=== PATIENT | male | born 1990 | race Caucasian/White ===

== ENCOUNTER 2018-07-15 17:30 | Outpatient (RCR) | payer OTHER, SELFPAY ==
--- NOTE | 2018-06-17 19:37 | HP.PTEVAL_ITS ---
Patient's Visit Information CRISTINA CATHERINE is a 28 year old M referred to Physical Therapy by Nicolette Cheema NP-C with a diagnosis of LOW BACK PAIN WITH NEUROPATHY BLE. Date of Evaluation: 06/17/18 Physical Therapist: John Thomason PT, - Visit Plan Frequency: 2x /Week Duration: 4 Weeks Plan: POSTURAL EX'S,DLS ABD/BACK,LE FLEXABLITY,MODALITIES PRN FOR PAIN CONTROL - Subjective Subjective: This 28 y/o male presents to physical therapy for low back pain with neuropathy in BLE. 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 Symptoms return several months later in back and legs . Patient reports pain cane be manageable 3/10 but when have flare ups pain can increase to 7/10. Symptom aggravates with walking,standing,bending,lifting,sitting. Symptoms better with rest and MEDS.Currentlybpain is located ache in back and left leg with intensity of symptoms increase with activity.Patient has had h/o epidural injections which helped. Coughing/sneezing -.Bowel/bladder -. Patient symptoms affect QOL and job demands. SOCAIL: . 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 PALPATION: tender paraspinals. NEURO: c/o parathesia/tingling lateral hip,reflexes L3-4,L4-5,L5-S1 2/3. SYMMTRIES : align. GAIT: reciprocal pattern normal cece. MMT: quads/hams/hip 4/5,ankle 5/5. LUMBAR ROM: flexion mod loss pain ,side glides min loss,extension min loss. FLEXABLITY: hams min loss - Special Tests L/S Slump test left side: Negative L/S Slump test right side: Negative L/S Left Straight Leg Raise: Negative L/S Right Straight Leg Raise: Negative Lumbar Standing: Flexion - Mechanical Response: No effect Lumbar Standing: Flexion - Symptoms During Testing: Increases Lumbar Standing: Flexion - Symptoms After Testing: Worse Lumbar Standing: Extension - Mechanical Response: No effect Lumbar Standing: Extension - Symptoms During Testing: Increases Lumbar Standing: Extension - Symptoms After Testing: Worse Lumbar Lying: Flexion - Mechanical Response: No effect Lumbar Lying: Flexion - Symptoms During Testing: Increases Lumbar Lying: Flexion - Symptoms After Testing: Worse Lumbar Lying: Extension - Mechanical Response: No effect Lumbar Lying: Extension - Symptoms During Testing: Increases Lumbar Lying: Extension - Symptoms After Testing: Worse - Goals Goal 1:: Independant with HEP Goal Time Frame: 4-6 Weeks Goal 2:: Independant with posture/body mechanics Goal Time Frame: 4-6 Weeks Goal 3:: Decrease lumbar pain by 50 % or greater to improve function with ADL'S and job demands. Goal Time Frame: 4-6 Weeks Goal 4:: Patient to improve lumbar ROM for function of recovery Goal Time Frame: 4-6 Weeks Goal 5:: Patient to improbe back owestry score by 5 points or greater to improve QOL. Goal Time Frame: 4-6 Weeks Goal 6:: Patient to improve ablity to perform ADLS's job demands with min limiations with less pain Goal Time Frame: 4-6 Weeks - Rehabilitation Potential Physical Therapy Diagnosis: This patient has multiple comorbities with lumbar with tumor removed,pars fracture,and lumbar fusion 2016 with current dysfunction with pain ,weak Transverse abdominal,multifidas,. decrease ROM thus impairs function and job demands. Rehabilitation Potential: Good - Anticipated Interventions Patient/Client Instruction: Educate patient on: Condition, Plan of Care For the Purpose of:: To decrease pain, To increase ROM, To improve muscle performance and motor function, To improve ability to perform ADL's, To increase tolerance to activity/condition/position, To improve ability of physical actions for home/community/work/leisure, To improve health of tissue, To decrease soft tissue restriction, To increase flexibility/ROM, To reduce risk of recurrence, To prevent re-injury, To improve ability to perform tasks related to life management Therapeutic Exercise to Include: Strength training, Body mechanics, Postural training, Flexibilty training, Dynamic Lumbar Stabilization For the Purpose of:: To decrease pain, To increase ROM, To improve muscle performance and motor function, To improve ability to perform ADL's, To increase tolerance to activity/condition/position, To improve ability of physical actions for home/community/work/leisure, To improve health of tissue, To decrease soft tissue restriction, To increase flexibility/ROM, To improve ability to perform tasks related to life management TENS: Yes IF ES: Yes Cryotherapy (ice pack, ice massage): Yes Thermo therapy (hot pack): Yes Ultrasound (thermal/non thermal): Yes For the Purpose of:: To decrease pain, To increase ROM, To improve health of tissue, To decrease soft tissue restriction, To improve ability to perform tasks related to life management Thank you for the opportunity to evaluate your patient. For Medicare and Medicare HMO plans, please review the plan of care and approve it. It will need to be FAXED BACK to us at [phone] for Medicare purposes. Please let me know if there are questions or concerns regarding this plan of care. Physician Signature: Date:
--- NOTE | 2018-06-18 14:35 | HP.PTEVAL_ITS ---
Patient's Visit Information CRISTINA CATHERINE is a 28 year old M referred to Physical Therapy by Nicolette Cheema NP-C with a diagnosis of LOW BACK PAIN WITH NEUROPATHY BLE. Date of Evaluation: 06/17/18 Physical Therapist: John Thomason PT, - Visit Plan Frequency: 2x /Week Duration: 4 Weeks Plan: POSTURAL EX'S,DLS ABD/BACK,LE FLEXABLITY,MODALITIES PRN FOR PAIN CONTROL - Subjective Subjective: This 28 y/o male presents to physical therapy for low back pain with neuropathy in BLE. This patient has h/o intially injuring low back pole vaulting in HS has caused pars fx L4-5 2005,then tumor removed T12 2013 due to progress madelin worse in legs with pain and parathesia. 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 Symptoms return several months later in back and legs . Patient reports pain cane be manageable 3/10 but when have flare ups pain can increase to 7/10. Symptom aggravates with walking,standing,bending,lifting,sitting. Symptoms better with rest and MEDS.Currentlybpain is located ache in back and left leg with intensity of symptoms increase with activity.Patient has had h/o epidural injections which helped. Coughing/sneezing -.Bowel/bladder -. Patient symptoms affect QOL and job demands. SOCAIL: . [employer]OVATION: [employer] .[employer]. active duty in [employer] - Pain Bilateral Back Pain Intensity (Out of 10): 3 Pain Intensity Range: 7 Left Lower Extremity Pain Intensity (Out of 10): 3 Pain Intensity Range: 7 - Objective POSTURE: rouded shoulders head foward. PALPATION: tender paraspinals. NEURO: c/o parathesia/tingling lateral hip,reflexes L3-4,L4-5,L5-S1 2/3. SYMMTRIES : align. GAIT: reciprocal pattern normal cece. MMT: quads/hams/hip 4/5,ankle 5/5. LUMBAR ROM: flexion mod loss pain ,side glides min loss,extension min loss. FLEXABLITY: hams min loss - Special Tests L/S Slump test left side: Negative L/S Slump test right side: Negative L/S Left Straight Leg Raise: Negative L/S Right Straight Leg Raise: Negative Lumbar Standing: Flexion - Mechanical Response: No effect Lumbar Standing: Flexion - Symptoms During Testing: Increases Lumbar Standing: Flexion - Symptoms After Testing: Worse Lumbar Standing: Extension - Mechanical Response: No effect Lumbar Standing: Extension - Symptoms During Testing: Increases Lumbar Standing: Extension - Symptoms After Testing: Worse Lumbar Lying: Flexion - Mechanical Response: No effect Lumbar Lying: Flexion - Symptoms During Testing: Increases Lumbar Lying: Flexion - Symptoms After Testing: Worse Lumbar Lying: Extension - Mechanical Response: No effect Lumbar Lying: Extension - Symptoms During Testing: Increases Lumbar Lying: Extension - Symptoms After Testing: Worse - Goals Goal 1:: Independant with HEP Goal Time Frame: 4-6 Weeks Goal 2:: Independant with posture/body mechanics Goal Time Frame: 4-6 Weeks Goal 3:: Decrease lumbar pain by 50 % or greater to improve function with ADL'S and job demands. Goal Time Frame: 4-6 Weeks Goal 4:: Patient to improve lumbar ROM for function of recovery Goal Time Frame: 4-6 Weeks Goal 5:: Patient to improbe back owestry score by 5 points or greater to improve QOL. Goal Time Frame: 4-6 Weeks Goal 6:: Patient to improve ablity to perform ADLS's job demands with min limiations with less pain Goal Time Frame: 4-6 Weeks - Rehabilitation Potential Physical Therapy Diagnosis: This patient has multiple comorbities with lumbar with tumor removed,pars fracture,and lumbar fusion 2016 with current dysfunction with pain ,weak Transverse abdominal,multifidas,. decrease ROM thus impairs function and job demands. Rehabilitation Potential: Good - Anticipated Interventions Patient/Client Instruction: Educate patient on: Condition, Plan of Care For the Purpose of:: To decrease pain, To increase ROM, To improve muscle performance and motor function, To improve ability to perform ADL's, To increase tolerance to activity/condition/position, To improve ability of physical actions for home/community/work/leisure, To improve health of tissue, To decrease soft tissue restriction, To increase flexibility/ROM, To reduce risk of recurrence, To prevent re-injury, To improve ability to perform tasks related to life management Therapeutic Exercise to Include: Strength training, Body mechanics, Postural training, Flexibilty training, Dynamic Lumbar Stabilization For the Purpose of:: To decrease pain, To increase ROM, To improve muscle performance and motor function, To improve ability to perform ADL's, To increase tolerance to activity/condition/position, To improve ability of physical actions for home/community/work/leisure, To improve health of tissue, To decrease soft tissue restriction, To increase flexibility/ROM, To improve ability to perform tasks related to life management TENS: Yes IF ES: Yes Cryotherapy (ice pack, ice massage): Yes Thermo therapy (hot pack): Yes Ultrasound (thermal/non thermal): Yes For the Purpose of:: To decrease pain, To increase ROM, To improve health of tissue, To decrease soft tissue restriction, To improve ability to perform tasks related to life management Thank you for the opportunity to evaluate your patient. For Medicare and Medicare HMO plans, please review the plan of care and approve it. It will need to be FAXED BACK to us at [phone] for Medicare purposes. Please let me know if there are questions or concerns regarding this plan of care. Physician Signature: Date:
--- NOTE | 2018-07-15 18:58 | HP.PTDCSUM ---
HP - PT D/C Summary It has been my pleasure to treat CRISTINA CATHERINE under orders from Nicolette Cheema NP-C, for the diagnosis of LOW BACK PAIN WITH NEUROPATHY BLE for a total of 9 visit(s). Discharge Date: 07/15/18 Please see the following information for a summary of their discharge status. - Subjective Subjective: Feeling okay - Pain Bilateral Back Pain Intensity (Out of 10): 0 Left Lower Extremity Pain Intensity (Out of 10): 0 - Overall Improvement % Improvement: 75 - Objective Objective/Function: POSTURE: mild foward posture. GAIT: normal reciprocal pattern. NEURO: intact reflexes. MMT: 4/5. LUMBAR ROM: flexion min loss,extension min loss. -SLR - Goals Goal 1:: Independant with HEP Goal Progress: Goal Met Goal 2:: Independant with posture/body mechanics Goal Progress: Goal Met Goal 3:: Decrease lumbar pain by 50 % or greater to improve function with ADL'S and job demands. Goal Progress: Goal Met Goal 4:: Patient to improve lumbar ROM for function of recovery Goal Progress: Goal Met Goal 5:: Patient to improbe back owestry score by 5 points or greater to improve QOL. Goal 6:: Patient to improve ablity to perform ADLS's job demands with min limiations with less pain - Plan Plan: D/C TO HEP - D/C Information Discharge Comments: [facility] If there are questions or concerns regarding this patient's physical therapy, please feel free to call me at [phone]. Thank you for the referral of this patient. Sincerely, John Thomason, PT,
== END 2018-07-15 19:00 | disposition home or self-care (01) ==
LOC: PT 17:30
PROVIDERS: Family Provider Nurse Practitioner; PCP Nurse Practitioner; Referring Provider Nurse Practitioner; Visit Provider Nurse Practitioner
DX: M54.5 Low back pain (principal)
CPT/HCPCS: 97110; 97161; 97530; G8978; G8979

== ENCOUNTER → 2019-04-24 14:48 | Outpatient (CLI) | payer MEDICAID, SELFPAY ==
[2019-04-24 07:36] VITALS: BMI 27.5
--- NOTE | 2019-04-24 08:00 | VAS_PTH ---
PATIENT: CRISTINA CATHERINE LOC: [facility] U#:[id number] AGE/SX: 35/M ROOM: RE04/24/[address]: Dr. Len Bermeo MD : 1990 BED: DIS: SPEC #: [id number] RECD: 04/24/19 11:09 STATUS: TAL NICOL #: [id number] DESTINEE: 04/24/19 08:[address]: Len Bermeo DEPT: SURGICAL PATHOLOGY RECD BY: Michelle Yousif ENTERED: 04/24/19 14:59 SP TYPE: VAS OTHR DR: MD Nicolette Lopez, DISH TECHNICIAN-C Tissues: A - Vas deferens, NOS B - Vas deferens, NOS Procedures: Surgery Specimen Level II HEADER OPERATION: Bilateral partial vasectomy PRE-OP DIAGNOSIS: Sterilization TISSUE SUBMITTED: A - Right vas deferens, B - Left vas deferens MICROSCOPIC DIAGNOSIS A. Right vas deferens, partial vasectomy: Completely transected segment of vas deferens, no pathologic diagnosis. B. Left vas deferens, partial vasectomy: Completely transected segment of vas deferens, no pathologic diagnosis. JIHAN:immanuel 04/25/19 MICROSCOPIC DESCRIPTION Slides are reviewed. GROSS DESCRIPTION A - Received is one container designated right vas deferens. The specimen consists of a cylindrical segment of pink-vences soft tissue measuring 0.6 cm in length and 0.2 cm in maximum diameter. The entire specimen is submitted in one cassette. The specimen will be sectioned at the time of embedding B - Received is one container designated left vas deferens. The specimen consists of a V-shaped piece of tubular tissue measuring 1.5 cm in length and 0.3 cm in diameter. The entire specimen is submitted in one cassette. The specimen will be sectioned at the time of embedding. / JIHAN:[email or web address] 04/24/19 TC:4 CPT: 20788 x2
== END ==
PROVIDERS: Family Provider Nurse Practitioner; PCP Family Medicine; Referring Provider Surgery; Visit Provider Surgery
DX: Z30.2 Encounter for sterilization (principal)
CPT/HCPCS: 88302

== ENCOUNTER → 2019-06-07 10:00 | Outpatient (CLI) | payer MEDICAID, SELFPAY ==
[2019-04-24 07:36] VITALS: BMI 27.5
[2019-06-10 10:08] LABS: Semen Analysis Post Vas ABSENT
== END ==
PROVIDERS: Visit Provider Surgery
DX: Z30.2 Encounter for sterilization (principal)
CPT/HCPCS: 89321

== ENCOUNTER → 2024-06-24 | Outpatient (CLI) | payer BC, SELFPAY ==
[2024-06-24 13:19] LABS: Absolute Lymphocyte Count 1.36 X10^3/uL (0.83-4.51); Basophil# 0.06 X10^3/uL; Basophil% 1.2 % (0-1); Hematocrit 40.7 % (40-54); Hemoglobin 13.5 g/dL (13.0-16.5); Lymphocyte # 1.36 X10^3/ul (0.83-4.51); Mean Corp Hgb Conc 33.2 g/dL (32-36); Mean Corpuscular Hgb 27.2 pg (27.0-32.0); Mean Corpuscular Volume 82.1 fL (80-94); Mean Platelet Vol. 9.5 fl (6.2-12.0); Monocyte% 7.9 % (0-10); NRBC Flagged by Analyzer 0 % (0-5); Neutrophil # 2.99 X10^3/uL (2.7-7.7); Neutrophil % 59.3 % (47-70); Platelet Count 226 K/mm3 (150-450); RBC Distribution Width CV 12.2 % (11.6-14.6); RBC Distribution Width SD 36.5 fl (35.1-43.9); Red Blood Count 4.96 M/mm3 (4.6-6.2)
[2024-06-24 14:03] LABS: Vitamin D,25 Hydroxy 25.1 ng/mL
[2024-06-24 14:10] LABS: ALB/GLOB Ratio 1.5 RATIO (0.9-2.4); AST(SGOT) 14 U/L (15-37); Alanine Aminotransfer ALT/SGPT 19 U/L (16-61); Albumin, Serum 4.3 g/dL (3.2-5.0); Alkaline Phosphatase 74 U/L (45-117); Anion Gap 4 (5-15); BUN 12 mg/dL (7-18); BUN/Creat Ratio 11.9 RATIO (10-20); Calcium,Total 9.6 mg/dL (8.5-10.1); Chloride 105 mmol/L (98-107); Creatinine, Serum 1.01 mg/dL (0.70-1.30); EST Glomerular Filtration Rate 90 mL/min (>60); Est Glom Filt Rate - Afr Amer 109 mL/min (>60); Globulin 2.8 g/dL (2.2-4.2); Glucose 91 mg/dL (74-106); Potassium 3.9 mmol/L (3.5-5.1); Protein, Total 7.1 g/dL (6.4-8.2); Sodium Level 138 mmol/L (136-145)
[2024-06-24 14:12] LABS: Hemoglobin A1c 4.9 % (3.8-5.6)
== END | disposition home or self-care (01) ==
DX: Z79.899 Other long term (current) drug therapy (principal)
CPT/HCPCS: 36415; 80053; 82306; 83036; 84443; 85025